=== PATIENT | male | born 1945 | race Caucasian/White ===

== ENCOUNTER → 2016-12-17 | Day surgery (SDC) | payer MEDICARE ==
[~2016-12-17] VITALS: Ht 168.9 cm; Wt 83.2 kg
[~2016-12-17] MED LIST: ACETAMINOPHEN 1000 MG/100 ML VIAL IV SCH; ALLO100T PO; ASPI325T PO; ATOR40TA PO; ATOR40TA16 PO; BUPIVACAINE/EPINEPHRINE 0.25% 50 ML VIAL ONE; CARB25TA16 PO; CHLORHEXIDINE GLUCONATE 2 % 1 PACK (2 CLOTHS) TOPICAL PRN; CIAL5TAB PO; CO Q100C9 PO; COMT200T PO; COQ-100C5 PO; ENTA1TAB PO; GARL1000 PO; GARL500C5 PO; GLIM1TAB PO; HYDR12.56 PO; INDO50CA PO; INDO75CA3 PO; INSULIN HUMAN REGULAR 1,000 UNITS/10 ML VIAL SQ PRN; LACTATED RINGER'S 1000 ML IV PRN; METF500 PO; METF500T PO; METOPROLOL TARTRATE 25 MG TAB PO PRN; NIAC500T5 PO; PANT40TA3 PO; PERC5TAB12 PO; POVIDONE IODINE 5% (ANTISEPSIS KIT) 4 APPLICATIONS EACH NARE PRN; PROSCAP3 PO; PROT40TA PO; ROPI2 PO; ROPI2TAB PO; SINE25TA2 PO; SODIUM CHLORID 0.9% 500 ML IV PRN; TAB-TAB PO; TELM1TAB2 PO; TELM1TAB56 PO; VITA10004 PO; ceFAZolin 2 GM PREMIX 50 ML IV SCH
[2016-12-17 09:06] VITALS: BP 138/76; PULSE 71; RESP 16; TEMP 98.5; O2SAT 98
== END | disposition home or self-care (01) ==
LOC: HSDC 08:00
PROVIDERS: ATTEND Surgery
DX: K42.9 Umbilical hernia without obstruction or gangrene (principal); Z53.09 Procedure and treatment not carried out because of other contraindication; E78.5 Hyperlipidemia, unspecified; I25.10 Atherosclerotic heart disease of native coronary artery without angina pectoris; G20 Parkinson's disease; E11.9 Type 2 diabetes mellitus without complications; K21.9 Gastro-esophageal reflux disease without esophagitis; I12.9 Hypertensive chronic kidney disease with stage 1 through stage 4 chronic kidney disease, or unspecified chronic kidney disease; N18.3 Chronic kidney disease, stage 3 (moderate); Z87.891 Personal history of nicotine dependence; Z79.84 Long term (current) use of oral hypoglycemic drugs; Z79.82 Long term (current) use of aspirin; Z79.899 Other long term (current) drug therapy
CPT/HCPCS: G0463; J0131; J7120; 99211

== ENCOUNTER → 2017-01-14 | Day surgery (SDC) | payer MEDICARE ==
[~2017-01-14] MED LIST changes: +ACETAMINOPHEN 1000 MG/100 ML 100 ML IV SCH; -ACETAMINOPHEN 1000 MG/100 ML VIAL IV SCH; -ATOR40TA PO; +BUPIVACAINE/EPINEPHRINE 0.25% 50 ML VIAL INFIL ONE; +BUPIVACAINE/EPINEPHRINE 0.25% PF 30 ML VIAL INFIL ONE; +BUPIVACAINE/EPINEPHRINE 0.5% 50 ML VIAL ONE; -COMT200T PO; -COQ-100C5 PO; +DEXAMETHASONE SOD PHOS 4 MG/ML VIAL IV ONE; +DO NOT ADM ANY ANTICOAGULANT DRUGS PRN; -GARL500C5 PO; +GLYCOPYRROLATE 1 MG/5 ML SYRINGE IV PUSH ONE; -HYDR12.56 PO; -INDO75CA3 PO; +KETOROLAC TROMETHAMINE 30 MG/ML (IVP) VIAL IV PUSH ONE; +LACTATED RINGER'S 1000 ML INJ 1,000 ML IV ONE; +LIDOCAINE HCL 1% PF 5 ML AMPULE OTHER ONE; -METF500 PO; +MORPHINE SULFATE 4 MG/ML INJ IV PUSH PRN; +NEOSTIGMINE 3 MG/3 ML SYR IV ONE; +ONDANSETRON HCL 4 MG/2 ML VIAL IV PUSH ONE; +ONDANSETRON HCL 4 MG/2 ML VIAL IV PUSH PRN; -PANT40TA3 PO; -PERC5TAB12 PO; +PROPOFOL 200 MG/20 ML AMP IV ONE; -PROT40TA PO; +ROCURONIUM INJ 50 MG/5 ML SYRINGE IV PUSH ONE; -ROPI2 PO; -SINE25TA2 PO; +SODIUM CHLORIDE 0.9% FLUSH 10 ML FLUSH IV FLUSH PRN; +SODIUM CHLORIDE 0.9% FLUSH 10 ML FLUSH IV FLUSH SCH; -TAB-TAB PO; -TELM1TAB56 PO; -ceFAZolin 2 GM PREMIX 50 ML IV SCH; +ePHEDrine/NS 25 MG/5 ML SYR IV ONE; +oxyCODONE/ACETAMINOPHEN 5 MG/325 MG TAB PO PRN
[2017-01-14] MEDS: ceFAZolin 2 GM PREMIX 50 ML IV SCH ×2 (11:00→11:05)
[2017-01-14 16:10] VITALS: BP 131/70; PULSE 77; RESP 16; TEMP 97.8; O2SAT 97
--- NOTE | 2017-02-11 12:23 | MP ---
cc: DEVONTE DOMINGO DATE OF SURGERY: 01/14/2017 PREOPERATIVE DIAGNOSIS Umbilical hernia. POSTOPERATIVE DIAGNOSIS Umbilical hernia. PROCEDURE Repair of umbilical hernia with Ventralight ST mesh. SURGEON Leon. ANESTHESIA General endotracheal. OPERATIVE FINDINGS The patient was found to have a less than 3 cm umbilical hernia which had no evidence of incarceration. There was a large hernia sac but no other abnormalities were noted. OPERATIVE PROCEDURE The patient was brought to the operating room and after satisfactory general endotracheal anesthesia was obtained, a TAP block with Exparel was placed by anesthesia. The abdomen was then prepped and draped in the usual sterile fashion. 0.5% Marcaine with epinephrine was used to infiltrate the skin for local anesthesia. A small incision was then made in the left subcostal region and the peritoneal cavity was entered bluntly with care being taken not to injure the underlying viscera. The abdomen was insufflated to 15 mmHg using carbon dioxide after which the camera was reinserted and visceral injury inspected for with none being identified. Under direct visualization two 5 mm ports were placed in the left side of the abdomen without problem. The hernia sac was dissected free partially using the Harmonic scalpel. The intraperitoneal fat was taken down with the Harmonic scalpel as well to clear the peritoneum for placement of the mesh. The 6-inch round mesh was chosen and was placed on its echo deployment system T-bar and then placed within the peritoneal cavity without problem. The mesh was unfurled and then the insufflation tubing was brought through the anterior abdominal wall through a stab wound made just above the umbilicus. The mesh was secured into place using AbsorbaTacks. After placing circumferential AbsorbaTacks the mesh backbone was removed without problem. The remainder of the mesh was then secured with AbsorbaTacks to assure adequate placement against the anterior abdominal wall. Hemostasis was checked for and found to be satisfactory. The abdomen was then cleared of carbon dioxide as completely as possible after which the ports were removed and the 12 mm fascial defect closed with interrupted 0 Vicryl suture. Skin was closed with interrupted 4-0 PDS subcuticular stitches. Steri-Strips and a sterile drapes were placed. The patient was taken from the operating room in satisfactory condition having tolerated his procedure without problem. Devonte Domingo MD [facility] /11:47 AM /12:13 PM
== END | disposition home or self-care (01) ==
LOC: HSDC 08:21
PROVIDERS: ATTEND Surgery
DX: K42.9 Umbilical hernia without obstruction or gangrene (principal); L57.0 Actinic keratosis; K29.00 Acute gastritis without bleeding; E11.22 Type 2 diabetes mellitus with diabetic chronic kidney disease; I12.9 Hypertensive chronic kidney disease with stage 1 through stage 4 chronic kidney disease, or unspecified chronic kidney disease; N18.3 Chronic kidney disease, stage 3 (moderate); Z87.891 Personal history of nicotine dependence
CPT/HCPCS: 00750; 49652; C1781; J0131; J0690; J1100; J1885; J2405; J2710; J3010; J7120